=== PATIENT | female | born 1970 | race Caucasian/White ===

== ENCOUNTER 2018-11-25 00:11 | Emergency (ER) | payer OTHER ==
[2018-11-25 00:23] VITALS: RESP 20; TEMP 98.6
[2018-11-25] MEDS ORDERED: guaiFENesin-DM 600/30MG 1 EACH TAB.ER.12H PO STA (01:09)
[2018-11-25] MEDS ORDERED: IPRATROPIUM-ALBUTEROL 3 ML NEB INHALATION STA (01:09)
--- NOTE | 2018-11-25 02:00 | US ---
History: ITS.REASON US Reason: Pain Exam: US VENOUS LEFT LOWER EXTREMITY TECHNIQUE: The lower extremity deep venous system is examined utilizing real time linear array sonography with graded compression, doppler sonography and color-flow sonography. Comparison: None available FINDINGS: Deep venous system of the left lower extremity appears patent and compressible with spontaneous and augmented flow without intraluminal echoes. IMPRESSION: No evidence of DVT within the left lower extremity.
--- NOTE | 2018-11-25 02:27 | XR ---
INDICATION: Chest pain COMPARISON: None FINDINGS: Frontal and lateral views of the chest are obtained. The cardiomediastinal silhouette is within normal limits. Pulmonary vascularity is normal. Lungs are clear. No pleural effusion or pneumothorax. Bony elements are within normal limits. IMPRESSION: No acute cardiopulmonary disease.
[2018-11-25] MEDS ORDERED: HYDROmorphone 1 MG/ML 1 ML SYRINGE IM STA (02:58)
[2018-11-25] MEDS ORDERED: DIAZEPAM 5 MG/ML 2 ML INJ IM ONE (02:58)
[2018-11-25 03:13] VITALS: BP 122/91; PULSE 91
[2018-11-25] MEDS ORDERED: predniSONE 50 MG TAB PO STA (03:14)
--- NOTE | 2018-11-25 03:17 | ED ---
Extremity Problem HPI - General Chief complaint: Extremity Problem,Nontraumatic Stated complaint: Leg pain/sob Time Seen by Provider: 11/25/18 00:28 Source: patient Mode of arrival: wheelchair Limitations: no limitations - History of Present Illness Initial comments: 48-year-old female patient presents to the emergency department today for evaluation of left leg pain. Patient states the pain starts in her left hip and radiates down the outside of her leg to her foot. 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 Patient states she does have a history of chronic low back pain. She denies any abdominal pain, cause patient, or diarrhea with this. Denies any saddle anesthesia or loss of bowel or bladder control. Patient states she is also had cough, sore throat, and fevers for the last 2-3 days. Patient states that she is coughing up clear sputum and does occasionally have shortness of breath with this. Patient states she has had a couple episodes of posttussive vomiting. She denies any chest pain. Patient was seen and evaluated at [facility] earlier today. States she did have labs drawn and x-ray of her low back. States that he wanted to perform ultrasound of her leg however did not have ultrasound available at the time, she is instructed to return in the morning. Patient was given an injection of Lovenox prior to discharge. Patient states the pain worsened and she could not tolerate it at home so she presented here for further evaluation. Patient denies any recent rash, shortness breath, chest pain, diarrhea, constipation, dizziness, weakness, hematuria, dysuria, urinary urgency, urinary frequency, headache, visual changes, or any other complaints. - Related Data Home Medications Medication Instructions Recorded Confirmed HYDROcodone/APAP 7.5-325MG [[place] 1 tab PO Q6HR PRN 11/25/18 11/25/18 7.5-325] Nortriptyline [Pamelor] 10 mg PO DAILY 11/25/18 11/25/18 Zolpidem [Ambien] 10 mg PO HS PRN 11/25/18 11/25/18 Previous Rx's Medication Instructions Recorded Albuterol Sulfate [Proair Hfa] 1 - 2 puff INHALATION Q6HR PRN #1 11/25/18 inhaler Diazepam [Valium] 5 mg PO Q8H PRN 3 Days #9 tab 11/25/18 Ibuprofen [Motrin] 600 mg PO Q8HR PRN #30 tab 11/25/18 guaiFENesin-DM 600/30MG [Mucinex 1 each PO Q12HR #10 tab.er.12h 11/25/18 Dm] predniSONE 50 mg PO DAILY #5 tablet 11/25/18 Allergies Allergy/AdvReac Type Severity Reaction Status Date / Time Penicillins Allergy Unknown Verified 11/25/18 00:23 Childhood Review of Systems ROS Statement: Those systems with pertinent positive or pertinent negative responses have been documented in the HPI. ROS Other: All systems not noted in ROS Statement are negative. Past Medical History Additional Past Medical History / Comment(s): psoriasis, Guillian B. History of Any Multi-Drug Resistant Organisms: None Reported Past Surgical History: Orthopedic Surgery Additional Past Surgical History / Comment(s): R Leg sx Past Psychological History: No Psychological Hx Reported Smoking Status: Never smoker Past Alcohol Use History: Occasional Past Drug Use History: None Reported General Exam Limitations: no limitations General appearance: alert, in no apparent distress, other (Physical well- developed, well-nourished adult female patient in mild distress related to pain. Vital signs upon presentation are temperature 98.6F, pulse 97, respirations 20, blood pressure 127/86, pulse ox 95% on room air.) Eye exam: Present: normal appearance, PERRL, EOMI. Absent: scleral icterus, conjunctival injection, periorbital swelling ENT exam: Present: normal exam, mucous membranes moist, TM's normal bilaterally. Absent: normal oropharynx (Pharyngeal erythema) Respiratory exam: Present: normal lung sounds bilaterally, other (Persistent cough noted throughout exam). Absent: respiratory distress, wheezes, rales, rhonchi, stridor Cardiovascular Exam: Present: regular rate, normal rhythm, normal heart sounds. Absent: systolic murmur, diastolic murmur, rubs, gallop, clicks GI/Abdominal exam: Present: soft, normal bowel sounds. Absent: distended, tenderness, guarding, rebound, rigid Extremities exam: Present: normal inspection, full ROM, normal capillary refill, other (Skin to the bilateral lower extremities is pink and dry. Feet are cool to touch but equal in temperature bilaterally. Pedal and posttibial pulses are 2+ and equal.). Absent: tenderness, pedal edema, joint swelling, calf tenderness Back exam: Present: normal inspection. Absent: vertebral tenderness Neurological exam: Present: alert, oriented X3, CN II-XII intact Psychiatric exam: Present: normal affect, normal mood Skin exam: Present: warm, dry, intact, normal color. Absent: rash Course Vital Signs 11/25/18 11/25/18 11/25/18 00:15 01:37 01:44 Temperature 98.6 F Pulse Rate 97 84 86 Respiratory 20 20 20 Rate Blood Pressure 127/86 O2 Sat by Pulse 95 Oximetry 11/25/18 03:12 Temperature Pulse Rate 91 Respiratory 20 Rate Blood Pressure 122/91 O2 Sat by Pulse 98 Oximetry Medical Decision Making - Medical Decision Making 48-year-old female patient percents to the emergency department today for evaluation of right leg pain as well as upper respiratory symptoms. Physical examination is relatively unremarkable. Lungs are clear to auscultation with good air movement. Patient did have persistent cough noted throughout exam. There is no bony spinal tenderness. Patient is neurologically intact with no focal deficits. No concerning symptoms for cauda equina. Ultrasound of the left lower extremity was obtained and showed no evidence for DVT. Did review x- ray and labs done at [facility], x-ray showed osteoarthritic changes and labs are unremarkable other than a sodium of 128. Patient did test positive for influenza A here in this department. We did discuss findings and results. Symptoms are consistent with acute lumbar radiculopathy. We will treat this with muscle relaxer, pain medication, anti-inflammatories. She was have [place] 7.5 mg at home she has instructed to continue taking this. She is also instructed to apply warm moist heat to the low back and perform gentle range of motion. We did discuss supportive care for the influenza, she is out of the treatment window for Tamiflu. She'll be discharged home with a prescription for steroids, pain medication, and Mucinex DM. She'll also be given a Pro Air inhaler. She is instructed to follow-up with her primary care physician for recheck in 1-2 days. Return parameters discussed in detail. She verbalizes understanding and agrees with this plan. - Lab Data Lab Results 11/25/18 Range/Units 02:05 Influenza Type A RNA Detected H (Not Detectd) Influenza Type B (PCR) Not Detected (Not Detectd) - Radiology Data Radiology results: report reviewed X-ray of the lumbosacral spine was obtained. Report was reviewed in its entirety. Impression by Dr. Crowder shows early osteoarthritic changes with osteophytic spurring formation throughout the lumbar spine. No acute compression deformity or focal bony destruction. Disposition Clinical Impression: Lumbar radiculopathy, Influenza A Disposition: HOME SELF-CARE Condition: Good Instructions (If sedation given, give patient instructions): Influenza (ED), Lumbar Radiculopathy (ED) Additional Instructions: Take medications as directed. Follow up with your primary care physician for recheck as discussed. Return to the emergency department immediately for any new, worsening, or concerning symptoms. Prescriptions: Ibuprofen [Motrin] 600 mg PO Q8HR PRN #30 tab PRN Reason: Pain guaiFENesin-DM 600/30MG [Mucinex Dm] 1 each PO Q12HR #10 tab.er.12h predniSONE 50 mg PO DAILY #5 tablet Albuterol Sulfate [Proair Hfa] 1 - 2 puff INHALATION Q6HR PRN #1 inhaler PRN Reason: Shortness Of Breath Diazepam [Valium] 5 mg PO Q8H PRN 3 Days #9 tab PRN Reason: Muscle Spasm Is patient prescribed a controlled substance at d/c from ED?: Yes When asked, does pt state using other controlled substances?: Yes If prescribed controlled substance>3 days was MAPS reviewed?: Prescribed <3 Days Referrals: Nonstaff,Physician [Primary Care Provider] - 1-2 days Time of Disposition: 03:17
== END 2018-11-25 03:24 | disposition home or self-care (01) ==
LOC: EC 00:11
DX: J10.1 Influenza due to other identified influenza virus with other respiratory manifestations (principal); M54.16 Radiculopathy, lumbar region; M19.90 Unspecified osteoarthritis, unspecified site; Z79.899 Other long term (current) drug therapy; Z88.0 Allergy status to penicillin
CPT/HCPCS: 94640; 87502; 71046; 93971; 99285; 96372 ×2; J3360; J1170; J7512

== ENCOUNTER 2022-06-06 04:46 | Emergency (ER) | payer OTHER ==
[2022-06-06 04:55] VITALS: RESP 16
[2022-06-06] MEDS ORDERED: HYDROmorphone 1 MG/ML 1 ML SYRINGE IM STA (05:45)
[2022-06-06] MEDS ORDERED: diazePAM 5 MG TAB PO STA (05:46)
--- NOTE | 2022-06-06 07:02 | CT ---
EXAMINATION TYPE: CT lumbar spine wo con DATE OF EXAM: 06/06/2022 6:49 AM COMPARISON: None. HISTORY: Bilateral leg pain, polyneuropathy CT DLP: 701.3 mGycm Automated exposure control for dose reduction was used. Unenhanced CT of the lumbar spine was performed. Bone and soft tissue window settings are submitted as well as coronal and sagittal reconstructions. There are 5 lumbar-type vertebra identified. Lumbar spine shows satisfactory alignment without eviden ce of acute fracture or dislocation. Vertebral body heights and disc space heights are maintained. No acute displaced fracture. Axial images show T12-L1, L1-L2, and L2-L3 level felt to appear within normal limits. Axial images at L3-L4 level show mild broad disc bulge and mild to moderate facet arthropathy. There is minimal effacement of the anterior thecal sac. Bilateral neural foramina are patent. Axial images at the L4-L5 level show mild to moderate facet arthropathy and ligamentum flavum hypertr ophy. There is [id number] broad disc bulge with right paracentral component axial image 60 mild ly effaces the anterior thecal sac. Mild right-sided anterior inferior neural foraminal narrowing. Le ft-sided neural foramina is patent. Axial images at the L5-S1 level show central disc protrusion but spinal canal is preserved as there i s increased epidural fat. There is mild facet arthropathy bilaterally but bilateral neural foramina a re patent. Paraspinal muscle bulk is preserved. IMPRESSION: No acute findings are evident. Mild to moderate degenerative changes in the mid to lower lumbar spine as detailed above. No suspicious disc herniation to account for radiculopathy type symp toms noted.
[2022-06-06] MEDS ORDERED: HYDROmorphone 0.5 MG/0.5 ML SYRINGE IVP STA (07:16)
--- NOTE | 2022-06-06 07:21 | ED ---
General Adult HPI - General Chief complaint: Extremity Injury, Lower Stated complaint: bilateral leg pain Time Seen by Provider: 06/06/22 04:50 Source: patient Mode of arrival: wheelchair - History of Present Illness Initial comments: 52-year-old female with past history of Guillain-barre, chronic neuropathy, in a pain in a pain contract who presents to the emergency department with sciatica pain. Patient reports that she has lower lumbar pain with radiation to the posterior aspect of her left leg. States that the pain has been going on for the past couple of days and patient has difficulty getting comfortable. States that the pain is constant however will have intermittent sharp shooting pains eyegrounds the posterior aspect of the left leg. She denies any injuries. Takes [employer] at home for pain control did not take any today. She denies any saddle anesthesia. No bowel or bladder incontinence. No fevers. Patient is ambulatory without difficulty. Denies any anterior abdominal pain. No history of intravenous drug use. No other alleviating, precipitating or modifying factors - Related Data Home Medications Medication Instructions Recorded Confirmed HYDROcodone/APAP 7.5-325MG [[employer] 1 tab PO Q6HR PRN 11/25/18 11/25/18 7.5-325] Nortriptyline [Pamelor] 10 mg PO DAILY 11/25/18 11/25/18 Zolpidem [Ambien] 10 mg PO HS PRN 11/25/18 11/25/18 Previous Rx's Medication Instructions Recorded Albuterol Sulfate [Proair Hfa] 1 - 2 puff INHALATION Q6HR PRN #1 11/25/18 inhaler Ibuprofen [Motrin] 600 mg PO Q8HR PRN #30 tab 11/25/18 diazePAM [Valium] 5 mg PO Q8H PRN 3 Days #9 tab 11/25/18 guaiFENesin-DM 600/30MG [Mucinex 1 each PO Q12HR #10 tab.er.12h 11/25/18 Dm] predniSONE 50 mg PO DAILY #5 tablet 11/25/18 Cyclobenzaprine [Flexeril] 10 mg PO TID PRN #30 tab 06/06/22 predniSONE [Deltasone] 20 mg PO BID #10 tab 06/06/22 Allergies Allergy/AdvReac Type Severity Reaction Status Date / Time Penicillins Allergy Unknown Verified 06/06/22 04:55 Childhood Review of Systems ROS Statement: Those systems with pertinent positive or pertinent negative responses have been documented in the HPI. ROS Other: All systems not noted in ROS Statement are negative. Past Medical History Additional Past Medical History / Comment(s): psoriasis, Guillian B. Bone infection to left index finger History of Any Multi-Drug Resistant Organisms: None Reported Past Surgical History: Orthopedic Surgery Additional Past Surgical History / Comment(s): R Leg sx Past Psychological History: No Psychological Hx Reported Past Alcohol Use History: Occasional Past Drug Use History: None Reported General Exam General appearance: alert, in no apparent distress Head exam: Present: atraumatic, normocephalic, normal inspection Eye exam: Present: normal appearance, PERRL, EOMI. Absent: scleral icterus, conjunctival injection, periorbital swelling ENT exam: Present: normal exam, mucous membranes moist Neck exam: Present: normal inspection. Absent: tenderness, meningismus, lymphadenopathy Respiratory exam: Present: normal lung sounds bilaterally. Absent: respiratory distress, wheezes, rales, rhonchi, stridor Cardiovascular Exam: Present: normal rhythm, tachycardia, normal heart sounds. Absent: systolic murmur, diastolic murmur, rubs, gallop, clicks GI/Abdominal exam: Present: soft, normal bowel sounds. Absent: distended, tenderness, guarding, rebound, rigid Extremities exam: Present: normal inspection, full ROM, normal capillary refill, other (5/5 muscle strength bilateral lower extremities). Absent: tenderness, pedal edema, joint swelling, calf tenderness Back exam: Present: paraspinal tenderness (L5. SI joint tenderness on the left. intact sensation bilateral lower extremities over the medial, lateral and dorsal le. 2+ DP and PT pulses) Neurological exam: Present: alert, oriented X3, CN II-XII intact Psychiatric exam: Present: normal affect, normal mood Skin exam: Present: warm, dry, intact, normal color. Absent: rash Course Vital Signs 06/06/22 06/06/22 06/06/22 04:48 07:41 07:53 Temperature 97.9 F 98.2 F Pulse Rate 118 H 111 H 78 Respiratory 16 16 Rate Blood Pressure 146/94 140/96 128/72 O2 Sat by Pulse 100 98 98 Oximetry Medical Decision Making - Medical Decision Making Upon arrival patient is placed into room 3. A thorough history and physical exam was performed. Patient has intact pulses in the lower extremity. She is ambulatory around the exam room with no weakness. She does have worsening pain with straight leg raise on the left. Patient was given a dose of Valium and Dilaudid. Sent over for CT of her lumbar spine which demonstrates degenerative changes. Patient is reevaluated and reports to improvement in her symptoms. She'll be discharged home on a steroid course and muscle relaxer. Instructed not to take the muscle relaxer and pain medications at the same time. Call and make an appointment with her neurologist. Return to the emergency room for any new or worsening symptoms. Patient was agreeable to this plan and discharged home in stable condition Disposition Clinical Impression: Lumbar radicular pain Disposition: HOME SELF-CARE Condition: Stable Instructions (If sedation given, give patient instructions): Lumbar Radiculopathy (ED) Additional Instructions: Please take the steroids as directed. Alternate the muscle relaxer with the narcotic that you take at home. Follow-up with your neurologist and return for any new or worsening symptoms Prescriptions: predniSONE [Deltasone] 20 mg PO BID #10 tab Cyclobenzaprine [Flexeril] 10 mg PO TID PRN #30 tab PRN Reason: Muscle Pain Is patient prescribed a controlled substance at d/c from ED?: No Referrals: Nonstaff,Physician [Primary Care Provider] - 1-2 days Time of Disposition: 07:21
[2022-06-06 07:55] VITALS: BP 128/72; PULSE 78; TEMP 98.2
== END 2022-06-06 07:53 | disposition home or self-care (01) ==
LOC: EC 04:46
DX: M54.16 Radiculopathy, lumbar region (principal); Z88.0 Allergy status to penicillin; Z79.899 Other long term (current) drug therapy
CPT/HCPCS: 72131; 99283; 96374; 96372; J1170 ×2

== ENCOUNTER 2022-06-11 16:52 | Emergency (ER) | payer OTHER ==
[2022-06-11 17:19] VITALS: TEMP 98.2
[2022-06-11 18:28] LABS: Basophils % (A) 0 %; Eosinophils # (A) 1.1 k/uL (0-0.7); Eosinophils % (A) 11 %; HGB 11.1 gm/dL (11.4-16.0); Hypochromasia Slight; Lymphocytes # (A) 1.6 k/uL (1.0-4.8); Lymphocytes % (A) 15 %; MCHC 32.6 g/dL (31.0-37.0); MCV 82.8 fL (80.0-100.0); Mean Platelet Volume 7.8; Monocytes # (A) 0.2 k/uL (0-1.0); Monocytes % (A) 2 %; Neutrophils # (A) 7.3 k/uL (1.3-7.7); Neutrophils % (A) 71 %; Platelet Count 293 k/uL (150-450); RBC 4.11 m/uL (3.80-5.40); RDW 15.5 % (11.5-15.5); WBC 10.3 k/uL (3.8-10.6)
--- NOTE | 2022-06-11 18:29 | XR ---
EXAMINATION TYPE: XR chest 2V DATE OF EXAM: 06/11/2022 6:08 PM COMPARISON: Chest radiographs from 11/25/2018 TECHNIQUE: XR chest 2V Frontal and lateral views of the chest. CLINICAL INDICATION:Female, 52 years old with history of Chest Pain; FINDINGS: Lungs/Pleura: There is no evidence of pleural effusion, focal consolidation, or pneumothorax. Pulmonary vascularity: Unremarkable. Heart/mediastinum: Cardiomediastinal silhouette is unremarkable. Musculoskeletal: No acute osseous pathology. Right-sided PICC with tip at the superior vena cava. IMPRESSION: 1. No acute cardiopulmonary disease/process. 2. Right PICC with tip at SVC.
[2022-06-11 18:38] LABS: ALT 63 U/L (4-34); AST 89 U/L (14-36); African American GFR (CKD) >90 (>60 ml/min/1.73 sqM); Albumin 3.3 g/dL (3.5-5.0); Alkaline Phosphatase 120 U/L (38-126); Anion Gap 10 mmol/L; Blood Urea Nitrogen 11 mg/dL (7-17); Calcium 8.6 mg/dL (8.4-10.2); Carbon Dioxide 22 mmol/L (22-30); Chloride 97 mmol/L (98-107); Glucose 117 mg/dL (74-99); Lipase 92 U/L (23-300); Magnesium 1.6 mg/dL (1.6-2.3); Non-African American GFR(CKD) >90 (>60 ml/min/1.73 sqM); Potassium 4.4 mmol/L (3.5-5.1); Sodium 129 mmol/L (137-145); Total Bilirubin 0.2 mg/dL (0.2-1.3); Total Protein 6.4 g/dL (6.3-8.2)
[2022-06-11 18:57] LABS: INR 0.9 (<1.2); Partial Thromboplastin Time 22.1 sec (22.0-30.0); Prothrombin Time 10.2 sec (9.0-12.0)
[2022-06-11 19:01] LABS: Amorphous Sediment,Urine Rare /hpf; Appearance,Urine Clear (Clear); Bacteria,Urine Rare /hpf; Bilirubin,Urine Negative (Negative); Blood,Urine Small (Negative); Color,Urine Colorless; Glucose,Urine (UA) Negative (Negative); Ketones,Urine Negative (Negative); Leukocyte Esterase,Urine Negative (Negative); Mucus,Urine Rare /hpf; Nitrite,Urine Negative (Negative); Protein,Urine Negative (Negative); RBC,Urine 2 /hpf (0-5); Specific Gravity,Urine 1.005 (1.001-1.035); Squamous Epithelial Cell,Urine 2 /hpf (0-4); Urobilinogen,Urine <2.0 mg/dL (<2.0); WBC,Urine <1 /hpf (0-5)
[2022-06-11] MEDS ORDERED: HYDROmorphone 1 MG/ML 1 ML SYRINGE IVP STA (19:19)
[2022-06-11 19:20] VITALS: BP 120/72; PULSE 99; RESP 14
--- NOTE | 2022-06-11 19:40 | ED ---
Chest Pain HPI - General Chief Complaint: Chest Pain Stated Complaint: Back Pain Time Seen by Provider: 06/11/22 17:22 Source: patient Mode of arrival: ambulatory Limitations: no limitations - History of Present Illness Initial Comments: Patient complains of chest pain. Pain is in the middle of the chest. It doesn't radiate to her. Nothing makes it better or worse. She has taken no medicines. She has no shortness of breath. She has no belly pain. She has no back pain. She has no flank pain. She has no diaphoresis. She has no weakness. She has no lightheadedness. - Related Data Home Medications Medication Instructions Recorded Confirmed HYDROcodone/APAP 7.5-325MG [[place] 1 tab PO Q6HR PRN 11/25/18 11/25/18 7.5-325] Nortriptyline [Pamelor] 10 mg PO DAILY 11/25/18 11/25/18 Zolpidem [Ambien] 10 mg PO HS PRN 11/25/18 11/25/18 Previous Rx's Medication Instructions Recorded Albuterol Sulfate [Proair Hfa] 1 - 2 puff INHALATION Q6HR PRN #1 11/25/18 inhaler Ibuprofen [Motrin] 600 mg PO Q8HR PRN #30 tab 11/25/18 diazePAM [Valium] 5 mg PO Q8H PRN 3 Days #9 tab 11/25/18 guaiFENesin-DM 600/30MG [Mucinex 1 each PO Q12HR #10 tab.er.12h 11/25/18 Dm] predniSONE 50 mg PO DAILY #5 tablet 11/25/18 Cyclobenzaprine [Flexeril] 10 mg PO TID PRN #30 tab 06/06/22 predniSONE [Deltasone] 20 mg PO BID #10 tab 06/06/22 Allergies Allergy/AdvReac Type Severity Reaction Status Date / Time Penicillins Allergy Unknown Verified 06/11/22 17:19 Childhood Review of Systems ROS Statement: Those systems with pertinent positive or pertinent negative responses have been documented in the HPI. ROS Other: All systems not noted in ROS Statement are negative. EKG Findings - EKG Comments: EKG Findings:: Twelve-lead EKG shows ventricular rate 104 bpm, normal ID interval, normal QRS complexes, no ST elevation or depression, interpreted by me as sinus tachycardia. Past Medical History Additional Past Medical History / Comment(s): psoriasis, Guillian B. Bone infection to left index finger neuropathy herniated disc. History of Any Multi-Drug Resistant Organisms: None Reported Past Surgical History: Orthopedic Surgery Additional Past Surgical History / Comment(s): R Leg sx Past Psychological History: No Psychological Hx Reported Past Alcohol Use History: Occasional Past Drug Use History: None Reported General Exam Limitations: no limitations General appearance: alert, in no apparent distress Head exam: Present: atraumatic, normocephalic, normal inspection Eye exam: Present: normal appearance, PERRL, EOMI. Absent: scleral icterus, conjunctival injection, periorbital swelling ENT exam: Present: normal exam, mucous membranes moist Neck exam: Present: normal inspection. Absent: tenderness, meningismus, lymphadenopathy Respiratory exam: Present: normal lung sounds bilaterally. Absent: respiratory distress, wheezes, rales, rhonchi, stridor Cardiovascular Exam: Present: regular rate, normal rhythm, normal heart sounds. Absent: systolic murmur, diastolic murmur, rubs, gallop, clicks GI/Abdominal exam: Present: soft, normal bowel sounds. Absent: distended, tenderness, guarding, rebound, rigid Extremities exam: Present: normal inspection, full ROM, normal capillary refill. Absent: tenderness, pedal edema, joint swelling, calf tenderness Back exam: Present: normal inspection Neurological exam: Present: alert, oriented X3, CN II-XII intact Psychiatric exam: Present: normal affect, normal mood Skin exam: Present: warm, dry, intact, normal color. Absent: rash Course Vital Signs 06/11/22 06/11/22 06/11/22 17:13 17:31 19:18 Temperature 98.2 F Pulse Rate 100 99 Pulse Rate [ 103 H [employer] ] Respiratory 20 14 Rate Blood Pressure 119/72 120/72 O2 Sat by Pulse 98 100 Oximetry Chest Pain MDM - Core Measures AMI Core Measures Followed: Yes - MDM Patient complains of chest pain. Her exam is unremarkable. Her workup is unremarkable. She is feeling better. She is stable for discharge. Disposition Clinical Impression: Chest pain Disposition: HOME SELF-CARE Condition: Good Instructions (If sedation given, give patient instructions): Chest Pain (ED) Is patient prescribed a controlled substance at d/c from ED?: No Referrals: Brianna Sun MD [Primary Care Provider] - 1-2 days
== END 2022-06-11 20:06 | disposition home or self-care (01) ==
LOC: EC 16:52
DX: R07.89 Other chest pain (principal); Z88.0 Allergy status to penicillin
CPT/HCPCS: 36415; 83880; 80053; 83690; 83735; 84484; 85025; 85610; 85730; 81001; 71046; 96374; 99285; J1170